=== PATIENT | female | born 1980 | race Caucasian/White ===

== ENCOUNTER 2024-10-19 23:41 | Inpatient (IN) | payer MEDICAID, OTHER, SELFPAY ==
[2024-10-19 23:56] VITALS: BP 127/88; BP 132/84; PULSE 111; PULSE 95; RESP 18; TEMP 37.3; O2SAT 99; BMI 20.5
--- NOTE | 2024-10-20 00:07 | PC.NURSE ---
t/w completed person search and thereafter brought client a drink and snack, client made no eye contact and after my statements responded with a huffing type sound through clenched teeth. t/w left sandwich, asked about pharmacy and then left room. no evidence of injury or contraband
--- NOTE | 2024-10-20 00:30 | PC.NURSE ---
at this time d/t limited evidence of patients communication with us, lab draw will be delayed.
[2024-10-20 00:35] LABS: Appearance Urine Clear; Color Urine Yellow; Glucose Urine UA Negative (Negative); Leukocyte Esterase Urine Negative (Negative); Nitrite Urine Negative (Negative); Specific Gravity - Urine >= 1.030 (1.005-1.025); UMIC TRIGGER UACC YES; Urine Blood Trace (Negative); Urine Ketones Negative (Negative); Urine Protein Negative (Neg-Trace)
[2024-10-20 00:36] LABS: UPreg QC Valid YES; Urine Pregnancy NEGATIVE (NEGATIVE)
[2024-10-20 00:38] LABS: Bacteria Urine None Seen (None Seen); Hyaline Casts Urine 0-2 /LPF (0-2); WBC Urine 0-5 /HPF (0-5)
--- NOTE | 2024-10-20 00:45 | ED.PSYCH ---
HPI - Psych General Chief Complaint: Psychiatric Symptoms Stated Complaint: dc from [facility], hx schizophrenia, Time Seen by Provider: 10/20/24 00:11 History of Present Illness HPI Narrative: patient is a 43-year-old female recently discharged from [facility] was in a [place] [facility] has a history of schizophrenia had episode of stopping responding. Where she stares into space. There was no seizure-like activity but patient became irritable. Was sent in for further evaluation. Has a history of schizophrenia. Related Data Allergies Allergy/AdvReac Type Severity Reaction Status Date / Time No Known Allergies Allergy Verified 10/20/24 00:02 Review of Systems Review of Systems: Patient unable to answer review of system questions [facility] Past Medical History Attestation statement: The following information was validated with the patient. Social History Social History Advance Directives: No Advance Directives Information Provided: Yes Do you have a plan to hurt others: No Plan Physical Exam Vital Signs: Vital Signs: Last Vital Signs Temp 99.1 F 10/19/24 23:56 Pulse 95 10/19/24 23:56 Resp 18 10/19/24 23:56 BP 127/88 10/19/24 23:56 Pulse Ox 99 10/19/24 23:56 O2 Del Method Room Air 10/19/24 23:56 BMI result Body Mass Index 20.5 Appearance: Alert. No acute distress. Eyes: Pupils equal, round ENT: Pharynx normal. Neck: Normal inspection. Neck supple. CVS: patient refused exam but does not appear to have any gross shortness of breath Respiratory: patient refused Abdomen: patient refuse Skin: Skin warm and dry. Normal skin color. Normal skin turgor. Extremities: No lower extremity edema. Neurovascular intact to all extremities. No Lacerations. No Rash Neuro: grossly moving all extremity cranial nerves grossly intact Medical Decision Making Medical Decision Making MDM Narrative: well-appearing nonacute distress. Will get crisis evaluate patient. Baseline labs were ordered. More likely this is psychiatric in origin. Currently medically clear. Patient was just discharged from psychiatric facility today Lab Data [facility] Lab Attestation statement: I reviewed the patient's lab results. Labs: Lab Results 10/20/24 Range/Units 00:29 Urine Color Yellow Urine Appearance Clear Urine pH 6.0 (5.0-9.0) Ur Specific [place] >= 1.030 H (1.005-1.025) Urine Protein Negative (Neg-Trace) mg/dL Urine Glucose (UA) Negative (Negative) mg/dL Urine Ketones Negative (Negative) mg/dL Urine Blood Trace H (Negative) Urine Nitrite Negative (Negative) Ur Leukocyte Esterase Negative (Negative) Urine RBC 11-20 H (0-2) /HPF Urine WBC 0-5 (0-5) /HPF Ur Squamous Epith Cells 6-10 (0-2) /HPF Urine Bacteria None Seen (None Seen) Hyaline Casts 0-2 (0-2) /LPF Urine Test NEGATIVE (NEGATIVE) Discharge Plan Discharge Clinical Impression: Chronic schizophrenia Patient Disposition: Still a Patient Interventions: [place]-Suicide Risk Severity Scale Last Done: 10/20/24 00:12 Print Language: Hungarian
[2024-10-20 00:52] LABS: Amphetamine Screen Urine Not Detected (Not Detect); Barbiturates, Urine Not Detected (Not Detect); Benzodiazepines Screen Urine Not Detected (Not Detect); Buprenorphine Scr Not Detected (Not Detect); Cannabinoid Screen Urine Not Detected (Not Detect); Cocaine Screen Urine Not Detected (Not Detect); Fentanyl, urine Not Detected (Not Detect); Methadone Screen, Urine Not Detected (Not Detect); Opiate Screen Urine Not Detected (Not Detect); Oxycodone Screen Urine Not Detected (Not Detect); Phencyclidine Screen Urine Not Detected (Not Detect)
--- NOTE | 2024-10-20 05:37 | MHC.EDTECH ---
t/w attempted to obtain bloodwork. pt refusing. rn aware.
[2024-10-20 08:06] VITALS: BP 115/81; PULSE 88; RESP 16; TEMP 36.9; O2SAT 100
--- NOTE | 2024-10-20 12:36 | PC.NURSE ---
Pt. came out of room to ask what time lunch would be around. Appeared calm and cooperative. This RN asked pt. if now would be an OK time to attempt a blood draw. Pt. then stared at this RN and began hissing, then walked back into her room.
[2024-10-20 14:04] VITALS: BP 121/80; PULSE 88; RESP 18; TEMP 37.1; O2SAT 98
[2024-10-20 14:07] VITALS: BMI 24.6
--- NOTE | 2024-10-20 17:05 | PC.ADMIT ---
Ely is a 43 year old woman who was admitted to at 1400 from the pod on a 12B for psychosis. Per crisis report she was discharged from [facility] yesterday to a warming correction. She presents as nonverbal and making hissing sounds and intense facial expressions. [place] She has been on APTU in the past, but not frequently. She was calm in the pod, but refused having labs drawn. She approached staff once to ask what time lunch would arrive. When asked about bloodwork she reverted to ?hissing?. She did provide a urine sample which showed trace blood and fully negative tox screen. Once on the unit Ely has been cooperative but appears acutely anxious with significant thought blocking. She was able to answer some questions about her medical history, pain, and food preferences, but she was not able to answer any questions about her social or psychiatric history or current symptoms. Skin check is unremarkable. She denies smoking. She did not consent to a flu shot. She is placed on 15 minute safety checks. There is some concern for catatonia, though she was noted to eat, drink, and sleep in the ED and she is using the bathroom independently. She would not take Ativan, which is the only medication she has been offered thus far. She does occasionally speak, but only on her own terms and she appears unable to answer questions.
[2024-10-20 20:00] VITALS: BP 122/83; PULSE 101; RESP 16; TEMP 36.4; O2SAT 100
--- NOTE | 2024-10-21 16:11 | HO.PSYADMNOT ---
HPI Date of Service: 10/21/24 Chief Complaint: Schizophrenia Sources of Information: patient interviewed, chart reviewed and crisis/core team assessment reviewed HPI Subjective Notes: [place] Warning and Section 12B Healthcare Proxy: No Guardianship: No Medical Problems Affecting Mental Status: No Narrative: Seen 1pm 43 yo female, admitted to ER 10/19. Hx of Schizophrenia diagnosis. By hx pt was seen by crisis at [facility] in 2019. She has been in [place] for 15 years DC from [facility]19 from [facility], from [facility]. It was reported she was psychotic, not sleeping and FTT. She was referred to a [facility] and then to ER. Pt noted to be inhaling through her nose, exhaling through clenched visable teeth Past Psychiatric History: IP: APTU 2019, [facility]-recent DC OP: None Meds: Hx Abilify No known other agency involvement Hx of harassment prevention order, threat to commit a crime 12/2023 Medical Evaluation Reviewed: Yes PMFSH Family History: denies Social History: Born in [place], has siblings Attended some college Not currently employed In [place] 5 years? No children Substance History: affirms, cannabis, alcohol Diagnostics Vital Signs (24Hr): Vital Signs - 24 hr 10/20/24 20:00 Temperature 97.5 F Pulse Rate 101 H Respiratory Rate 16 Blood Pressure 122/83 Pulse Oximetry 100 Oxygen Delivery Method Room Air BMI result Body Mass Index 24.6 Labs Labs: Laboratory Results - last 48 hr 10/20/24 00:29 Urine Color Yellow Urine Appearance Clear Urine pH 6.0 Ur Specific [place] >= 1.030 H Urine Protein Negative Urine Glucose (UA) Negative Urine Ketones Negative Urine Blood Trace H Urine Nitrite Negative Ur Leukocyte Esterase Negative Urine RBC 11-20 H Urine WBC 0-5 Ur Squamous Epith Cells 6-10 Urine Bacteria None Seen Hyaline Casts 0-2 Urine Test NEGATIVE Urine Opiates Screen Not Detected Ur Buprenorphine Scrn Not Detected Ur Oxycodone Screen Not Detected Urine Methadone Screen Not Detected Urine Fentanyl Screen Not Detected Ur Barbiturates Screen Not Detected Ur Phencyclidine Scrn Not Detected Ur Amphetamines Screen Not Detected U Benzodiazepines Scrn Not Detected Urine Cocaine Screen Not Detected U Marijuana (THC) Screen Not Detected Meds/Allergies Meds Home Medications ?Medication ?Instructions ?Recorded ?Confirmed ?Type No Known Home Meds 10/20/24 10/20/24 History Allergies Allergies Allergy/AdvReac Type Severity Reaction Status Date / Time No Known Allergies Allergy Verified 10/20/24 00:02 Mental Status Exam Mental Status Exam Patient Appearance: Fatigued and Disheveled Patient Orientation: Person Level of Consciousness: Alert Patient Behavior: Guarded, Suspicious, Avoidant, Distractible, Confused and Good Eye Contact Mood Description: Anxious and Apprehensive Affect Description: Anxious and Apprehensive Patient Cognition Impaired: Yes Ability to Follow Directions: Fair Speech Pattern: Spontaneous Speech and Delayed Memory Description: Remote Impaired Hallucinations: Auditory Delusions: Paranoid Ideation and Present Thought Process: Distracted Thought Content: positive for Circumstantial, positive for Thought Blocking, positive for Tangential and positive for Disorganized Judgement: Poor Assessment & Plan Assessment & Plan (1) Chronic schizophrenia: Status: Acute Code(s): F20.9 - Schizophrenia, unspecified Plan Schizophrenia. Plan: Admit, 12B, 15 minute checks Refuses diagnostics Poor historian, continue to attempt alliance Olanzapine 10 mg bid Patient educated on: therapeutic strategies Reason for continued inpatient stay Substantial Risk for: rapid decompensation Statement Statement: I have reviewed the history and physical and performed a pertinent examination on my patient. No changes have occurred unless specified. If the History and Physical was not performed prior to admission, the Hospitalist's service will be consulted for completing the admission physical. Time Spent With Patient Time: Total time managing care of this patient today ____ minutes.
[2024-10-21] MEDS: Throat Lozenge, Medicated LOZENGE 1 LOZENGE MUCOUS MEM (18:29)
[2024-10-21 20:00] VITALS: BP 125/77; PULSE 93; TEMP 37; O2SAT 98
[2024-10-21] MEDS: OLANZapine ODT 10 MG TAB.RAPDIS TRANSLINGU (20:39)
[2024-10-21] MEDS: LORazepam 1 MG TABLET PO (20:39)
--- NOTE | 2024-10-22 05:50 | HO.PSYCHPN ---
Subjective Subjective Date of Service: 10/22/24 Reason For Visit: Schizophrenia Interim History: Met with pt. Discussed with the team. Improved today. In the kitchen, with peers, working on a puzzle, increased interaction, attention and focus Refusing medicines Medication Compliance: No Side effects from medications: No Attending Groups: Intermittent Review of Systems Acute medical concerns: No Review of Systems Review of Systems denies Mental Status Exam Mental Status Exam Patient Appearance: Appropriate Patient Orientation: Person Level of Consciousness: Alert Patient Behavior: Talkative and Distractible Mood Description: Constricted Affect Description: Constricted Patient Cognition Impaired: No Ability to Follow Directions: Good Speech Pattern: Spontaneous Speech Memory Description: Remote Impaired Delusions: Present Thought Process: Distracted Thought Content: positive for Circumstantial, positive for Perseveration and positive for Suicidal Ideation (denies) Depressive Symptoms: Thoughts of /Suicide (denies) Judgement: Fair Diagnostics Vital Signs (24Hr): Vital Signs - 24 hr 10/21/24 20:00 Temperature 98.6 F Pulse Rate 93 Blood Pressure 125/77 Pulse Oximetry 98 Oxygen Delivery Method Room Air BMI result Body Mass Index 24.6 Medications Medications Current Medications Acetaminophen (Acetaminophen 325 Mg Tablet) 650 mg PO Q6H PRN PRN Reason: Headache/Pain Mild Scale (1-3) Al Hydroxide/Mg Hydroxide (Magnesium Hydrox/Alum Hydrox 30 Ml Oral.Susp) 30 ml PO Q6H PRN PRN Reason: Heartburn/Nausea Benzocaine (Throat Lozenge, Medicated Lozenge) 1 lozenge MUCOUS MEM Q2H PRN PRN Reason: Sore Throat Last Admin: 10/21/24 18:29 Dose: 1 lozenge Hydroxyzine HCl (Hydroxyzine Hcl 25 Mg Tablet) 25 mg PO Q6H PRN PRN Reason: Anxiety Lorazepam (Lorazepam 1 Mg Tablet) 1 mg PO TID DIYA Last Admin: 10/21/24 20:39 Dose: 1 mg Magnesium Hydroxide (Milk Of Magnesia 30 Ml Oral.Susp) 30 ml PO DAILY PRN PRN Reason: Constipation Nicotine (Nicotine 21 Mg Patch.Td24) 21 mg TRANSDERMA DAILY PRN PRN Reason: nicotine cravings Nicotine Polacrilex (Nicotine Polacrilex 2 Mg Gum) 4 mg BUCCAL Q2H PRN PRN Reason: Nicotine Cravings Olanzapine (Olanzapine 5 Mg Tablet) 5 mg PO Q4H PRN PRN Reason: agitation Olanzapine (Olanzapine Odt 10 Mg Tab.Rapdis) 10 mg TRANSLINGU BID DIYA Last Admin: 10/21/24 20:39 Dose: 10 mg Trazodone HCl (Trazodone Hcl 50 Mg Tablet) 50 mg PO BEDTIME MRX1 PRN PRN Reason: Insomnia Allergies Allergies Allergy/AdvReac Type Severity Reaction Status Date / Time No Known Allergies Allergy Verified 10/20/24 00:02 Assessment & Plan Assessment & Plan (1) Chronic schizophrenia: Status: Acute Code(s): F20.9 - Schizophrenia, unspecified Plan Schizophrenia. Plan: Admit, 12B, 15 minute checks Refuses diagnostics Poor historian, continue to attempt alliance Olanzapine 10 mg bid 10/22/24: Observe, encourage treatment Reason for continued inpatient stay Substantial Risk for: rapid decompensation Time Spent With Patient Time: Total time managing care of this patient today ____ minutes.
[2024-10-22 08:00] VITALS: BP 134/74; PULSE 143; RESP 18; TEMP 37.3; O2SAT 99
[2024-10-22 19:40] VITALS: BP 133/81; PULSE 113; TEMP 37.7; O2SAT 99
[2024-10-23 07:54] VITALS: BP 106/64; PULSE 94; TEMP 36.9; O2SAT 100
--- NOTE | 2024-10-23 08:43 | P.PNPSI_ITS ---
Subjective Subjective Date of Service: 10/23/24 Reason For Visit: Schizophrenia Subjective Notes: Conditional Voluntary Healthcare Proxy: No Guardianship: No Medical Problems Affecting Mental Status: No Interim History: Met with pt, discussed with the team. She has returned to a catatonic like presentation, yet clearly is able to express her needs when she feels this is warranted. Spent much time sitting in her bed, staring at the wall. Ativan 2 mg ordered. Pt refused Team continues to observe. Medication Compliance: No Side effects from medications: No Attending Groups: No Review of Systems Acute medical concerns: No Review of Systems Review of Systems Yes Unobtainable due to mental status Mental Status Exam Mental Status Exam Patient Appearance: Fatigued and Disheveled Patient Orientation: Person Level of Consciousness: Alert Patient Behavior: Guarded, Suspicious, Avoidant, Distractible, Confused and Good Eye Contact Mood Description: Anxious and Apprehensive Affect Description: Anxious and Apprehensive Patient Cognition Impaired: Yes Ability to Follow Directions: Fair Speech Pattern: Spontaneous Speech and Delayed Memory Description: Remote Impaired Hallucinations: Auditory Delusions: Paranoid Ideation and Present Thought Process: Distracted Thought Content: positive for Circumstantial, positive for Thought Blocking, positive for Tangential and positive for Disorganized Judgement: Poor Diagnostics Vital Signs (24Hr): Vital Signs - 24 hr 10/22/24 19:40 10/23/24 07:54 Temperature 100 F 98.5 F Pulse Rate 113 H 94 Blood Pressure 133/81 106/64 Pulse Oximetry 99 100 Oxygen Delivery Method Room Air Room Air BMI result Body Mass Index 24.6 Medications Medications Current Medications Acetaminophen (Acetaminophen 325 Mg Tablet) 650 mg PO Q6H PRN PRN Reason: Headache/Pain Mild Scale (1-3) Al Hydroxide/Mg Hydroxide (Magnesium Hydrox/Alum Hydrox 30 Ml Oral.Susp) 30 ml PO Q6H PRN PRN Reason: Heartburn/Nausea Benzocaine (Throat Lozenge, Medicated Lozenge) 1 lozenge MUCOUS MEM Q2H PRN PRN Reason: Sore Throat Last Admin: 10/21/24 18:29 Dose: 1 lozenge Hydroxyzine HCl (Hydroxyzine Hcl 25 Mg Tablet) 25 mg PO Q6H PRN PRN Reason: Anxiety Lorazepam (Lorazepam 1 Mg Tablet) 1 mg PO TID [facility] Last Admin: 10/22/24 21:02 Dose: Not Given Magnesium Hydroxide (Milk Of Magnesia 30 Ml Oral.Susp) 30 ml PO DAILY PRN PRN Reason: Constipation Nicotine (Nicotine 21 Mg Patch.Td24) 21 mg TRANSDERMA DAILY PRN PRN Reason: nicotine cravings Nicotine Polacrilex (Nicotine Polacrilex 2 Mg Gum) 4 mg BUCCAL Q2H PRN PRN Reason: Nicotine Cravings Olanzapine (Olanzapine 5 Mg Tablet) 5 mg PO Q4H PRN PRN Reason: agitation Olanzapine (Olanzapine Odt 10 Mg Tab.Rapdis) 10 mg TRANSLINGU BID DIYA Last Admin: 10/22/24 21:02 Dose: Not Given Trazodone HCl (Trazodone Hcl 50 Mg Tablet) 50 mg PO BEDTIME MRX1 PRN PRN Reason: Insomnia Allergies Allergies Allergy/AdvReac Type Severity Reaction Status Date / Time No Known Allergies Allergy Verified 10/20/24 00:02 Assessment & Plan Assessment & Plan (1) Chronic schizophrenia: Status: Acute Code(s): F20.9 - Schizophrenia, unspecified Plan Schizophrenia. Plan: Admit, 12B, 15 minute checks Refuses diagnostics Poor historian, continue to attempt alliance Olanzapine 10 mg bid 10/23/24- Catatonic like presentation returned. Pt however able to make her needs known when she believes it to be appropriate. Continue to assess and encourage treatment. Reason for continued inpatient stay Substantial Risk for: rapid decompensation Time Spent With Patient Time: Total time managing care of this patient today ____ minutes.
--- NOTE | 2024-10-23 17:42 | PC.NURSE ---
While passing out dinner trays Ely & a female peer had conflict over peer fixing Ely's hair. The two women almost engaged in a physical altercation but staff was able to deescalate the situation & separate the two. A staff member witnessed the whole incident and reports that Ely was initially allowing the peer to fix her hair. Both patients were coached not to touch each other, or any peers.
[2024-10-23 20:00] VITALS: BP 134/90; PULSE 84; TEMP 36.7; O2SAT 99
[2024-10-24 07:59] VITALS: BP 121/87; PULSE 89; RESP 18; TEMP 37.1; O2SAT 99
--- NOTE | 2024-10-24 10:44 | HO.PSYCHPN ---
Subjective Subjective Date of Service: 10/24/24 Reason For Visit: Schizophrenia Subjective Notes: Section 12B Healthcare Proxy: No Guardianship: No Medical Problems Affecting Mental Status: No Interim History: Pt reports she would like discharge tomorrow. She is not interested in signing a CV and she does not meet status for Section 7. She is not interested in medications. She states she would stay in the hospital if she could have her room, food and be able to come and go as she chooses and not pay rent. Discussed our inability to provide that service. States she will go to a fpc which she reports she has experience with in the past. She denies SI/HI/AH/VH. She presents with no acute signs of psychosis or ryan. She is able to care for herself at this time. We discussed our availability to her if she finds she is in need of treatment. She did ask if she could stop by when she needed to do laundry. We discussed our limitations on this service as well. She verbalized understanding and will discharge on 10/25 when her 12 B expires Medication Compliance: No Side effects from medications: No Attending Groups: No Review of Systems Acute medical concerns: No Review of Systems Review of Systems denies Mental Status Exam Mental Status Exam Patient Appearance: Appropriate Patient Orientation: Person, Place and Situation Level of Consciousness: Alert Patient Behavior: Guarded, Suspicious, Avoidant, Distractible and Good Eye Contact Mood Description: Constricted Affect Description: Constricted Patient Cognition Impaired: No Ability to Follow Directions: Good Speech Pattern: Spontaneous Speech Memory Description: Remote Impaired Delusions: Present Thought Process: Distracted Thought Content: positive for Circumstantial and positive for Goal Oriented Judgement: Good Diagnostics Vital Signs (24Hr): Vital Signs - 24 hr 10/23/24 20:00 10/24/24 07:59 Temperature 98.1 F 98.7 F Pulse Rate 84 89 Respiratory Rate 18 Blood Pressure 134/90 H 121/87 Pulse Oximetry 99 99 Oxygen Delivery Method Room Air Room Air BMI result Body Mass Index 24.6 Medications Medications Current Medications Acetaminophen (Acetaminophen 325 Mg Tablet) 650 mg PO Q6H PRN PRN Reason: Headache/Pain Mild Scale (1-3) Al Hydroxide/Mg Hydroxide (Magnesium Hydrox/Alum Hydrox 30 Ml Oral.Susp) 30 ml PO Q6H PRN PRN Reason: Heartburn/Nausea Benzocaine (Throat Lozenge, Medicated Lozenge) 1 lozenge MUCOUS MEM Q2H PRN PRN Reason: Sore Throat Last Admin: 10/21/24 18:29 Dose: 1 lozenge Haloperidol (Haloperidol 5 Mg Tablet) 5 mg PO BID PRN PRN Reason: psychosis Hydroxyzine HCl (Hydroxyzine Hcl 25 Mg Tablet) 25 mg PO Q6H PRN PRN Reason: Anxiety Lorazepam (Lorazepam 1 Mg Tablet) 1 mg PO TID PRN PRN Reason: agitation, catatonic sx Magnesium Hydroxide (Milk Of Magnesia 30 Ml Oral.Susp) 30 ml PO DAILY PRN PRN Reason: Constipation Nicotine (Nicotine 21 Mg Patch.Td24) 21 mg TRANSDERMA DAILY PRN PRN Reason: nicotine cravings Nicotine Polacrilex (Nicotine Polacrilex 2 Mg Gum) 4 mg BUCCAL Q2H PRN PRN Reason: Nicotine Cravings Olanzapine (Olanzapine 5 Mg Tablet) 5 mg PO Q4H PRN PRN Reason: agitation Olanzapine (Olanzapine Odt 10 Mg Tab.Rapdis) 10 mg TRANSLINGU BID DIYA Last Admin: 10/24/24 09:39 Dose: Not Given Trazodone HCl (Trazodone Hcl 50 Mg Tablet) 50 mg PO BEDTIME MRX1 PRN PRN Reason: Insomnia Allergies Allergies Allergy/AdvReac Type Severity Reaction Status Date / Time No Known Allergies Allergy Verified 10/20/24 00:02 Assessment & Plan Assessment & Plan (1) Chronic schizophrenia: Status: Acute Code(s): F20.9 - Schizophrenia, unspecified Plan Schizophrenia. Plan: Admit, 12B, 15 minute checks Refuses diagnostics Poor historian, continue to attempt alliance Olanzapine 10 mg bid 10/23/24- Catatonic like presentation returned. Pt however able to make her needs known when she believes it to be appropriate. Continue to assess and encourage treatment. 10/24/24: Alert, interactive, refusing meds, treatment. Discussed expiration of her 12B on 10/25. She is requesting discharge. Reason for continued inpatient stay Substantial Risk for: rapid decompensation Time Spent With Patient Time: Total time managing care of this patient today ____ minutes.
[2024-10-24 20:00] VITALS: BP 131/79; PULSE 91; TEMP 36.8; O2SAT 99
[2024-10-25 08:00] VITALS: BP 111/69; PULSE 86; TEMP 37.3; O2SAT 97
--- NOTE | 2024-10-25 08:44 | PM.PSYDC ---
DS: Providers Provider Date of admission: 10/20/24 12:23 Primary care physician: Brittany Physician DS: Diagnosis Discharge Diagnosis (1) Chronic schizophrenia: Status: Acute DS: Medications Discharge Medications Home Medications: Home Medications ?Medication ?Instructions ?Recorded ?Confirmed No Known Home Meds 10/20/24 10/20/24 Data Data Completed and Pending Completed studies during hospitalization [Text1]: 10/20/24 00:29 Urine Color Yellow Urine Appearance Clear Urine pH 6.0 Ur Specific [place] >= 1.030 H Urine Protein Negative Urine Glucose (UA) Negative Urine Ketones Negative Urine Blood Trace H Urine Nitrite Negative Ur Leukocyte Esterase Negative Urine RBC 11-20 H Urine WBC 0-5 Ur Squamous Epith Cells 6-10 Urine Bacteria None Seen Hyaline Casts 0-2 Urine Test NEGATIVE Urine Opiates Screen Not Detected Ur Buprenorphine Scrn Not Detected Ur Oxycodone Screen Not Detected Urine Methadone Screen Not Detected Urine Fentanyl Screen Not Detected Ur Barbiturates Screen Not Detected Ur Phencyclidine Scrn Not Detected Ur Amphetamines Screen Not Detected U Benzodiazepines Scrn Not Detected Urine Cocaine Screen Not Detected U Marijuana (THC) Screen Not Detected DS: Summary Time Spent with Patient Time attestation: Total time managing care of this patient today ____ minutes. Discharge Plan Discharge Anticipated Discharge Date/Time: 10/25/24 12:00 Patient Disposition: Halfway Discharge Diagnosis: Schizophrenia Referrals: [facility] [Other] - 1 Week (Referral for skilled nursing placement Patient has been approved for skilled nursing, pending availability of a bed being available.) Physician,Brittany J [Primary Care Provider] - 1 Week Discharge Medications: No Action No Known Home Meds Discharge Orders: Discharge Order (Routine); Ordered 10/25/24 Ordered By: Nerissa Terrell Diet: Advance to usual diet Activity on Discharge: As tolerated Stand Alone Forms: Patient Portal Discharge page Print Language: Hungarian Care Plan Goals: Mood and Behavioral Stabilization Health Concerns: Mood and Behavioral Stabilization Plan of Treatment: Ely has declined referrals, medications and all treatment that has been offered. Assessment: Ely denies SI,HI, AH, VH. She has no sx of acute ryan or psychosis She reports she does not want or need any treatment She declines to sign in to the hospital on a voluntary basis for treatment She declines medications. She declines referrals.
== END 2024-10-25 10:16 | disposition home or self-care (01) | DRG 750 ==
LOC: HO.ED 10-20 00:55 → HO.PM5 10-20 12:26
PROVIDERS: Admitting Provider Clinical Nurse Specialist Psychiatric/Mental Health, Adult; Emergency Provider Emergency Medicine Emergency Medical Services; Visit Provider Clinical Nurse Specialist Psychiatric/Mental Health, Adult
DX: F20.9 Schizophrenia, unspecified (principal)
CPT/HCPCS: 80307; 81001; 81025; 99284; S9485

== ENCOUNTER → 2024-10-20 12:23 | Outpatient (BNV) | payer OTHER, SELFPAY | PROVIDERS: Admitting Provider Clinical Nurse Specialist Psychiatric/Mental Health, Adult; Emergency Provider Emergency Medicine Emergency Medical Services; Visit Provider Clinical Nurse Specialist Psychiatric/Mental Health, Adult | DX: F20.9 Schizophrenia, unspecified (principal) | CPT/HCPCS: 99232 ==